=== PATIENT | male | born 1960 | race Caucasian/White ===

== ENCOUNTER 2017-10-18 07:21 | Day surgery (SDC) | payer OTHER ==
[2017-10-15 16:39] VITALS: BMI 28.0
[2017-10-18] MEDS ORDERED: PROPOFOL 20 ML ONE ×2 (07:29)
[2017-10-18 09:12] VITALS: TEMP 98.2
[2017-10-18 09:35] VITALS: BP 116/74; PULSE 58
--- NOTE | 2017-10-19 14:26 | PATH ---
Surgical Pathology Report Patient Name: TRIP BUCKLEY [facility]. Rec. #: [id number] /Age/Gender: 1960 (Age: 57) / M Account: [id number] Location: [facility]ENDOSCOPY Taken: 10/18/2017 Received: 10/18/2017 Reported: 10/19/2017 Physicians: Yousif Ruff M.D. Specimen(s) Received POLYP RECTUM Clinical History Rule out colon cancer Postoperative diagnosis: Diverticulosis Final Diagnosis RECTUM, POLYP, POLYPECTOMY: TUBULAR ADENOMA. Electronically Signed Sondra Acosta M.D. Gross Description Received in formalin, labeled "polyp rectum" are 3 owens, irregular portions of soft tissue ranging from 0.2-0.4 cm. in greatest dimension. The specimens are submitted in toto in one cassette. 10/18/201710/18/2017
== END 2017-10-18 09:46 | disposition home or self-care (01) ==
LOC: FASU-ENDO 07:21
PROVIDERS: ATTEND Internal Medicine Gastroenterology
PROC: 0DBP8ZX Excision of Rectum, Via Natural or Artificial Opening Endoscopic, Diagnostic (ICD-10-PCS; principal; 2017-10-18 08:43)
DX: Z12.11 Encounter for screening for malignant neoplasm of colon (principal); D12.8 Benign neoplasm of rectum; K57.30 Diverticulosis of large intestine without perforation or abscess without bleeding
CPT/HCPCS: 88305-TC